=== PATIENT | female | born 1995 | race African-American/Black ===

== ENCOUNTER → 2016-08-23 | Outpatient (CLI) | payer OTHER ==
[~2016-08-23] MED LIST: AMOX875T PO; BCPILLS PO; CETICHW4 PO; DIPH1TAB PO; EPP3/2 IM; FLUC200T4 PO; IBUP-1277 PO; NORG1TAB23 PO; ONDA4TAB10 SL; VNTHFA/IN INH; [UNRECOGNIZED DRUG - REMARK]; [UNRECOGNIZED DRUG - REMARK] PO
--- NOTE | 2016-08-23 13:10 | DIAGNOSTIC IMAGING REPORT ---
MRI OF THE BRAIN WITHOUT CONTRAST CLINICAL HISTORY: HEADACHE COMPARISON STUDY: Head CT dated 05/03/2015 FINDINGS: Sagittal T1, axial diffusion, proton density and T2 weighted axial, coronal FLAIR, and axial T1-weighted images were acquired. No intra or extra-axial mass lesions are visualized Axial diffusion-weighted images reveal no evidence of acute or subacute infarction. There is no evidence of ventricular dilatation. Proton density T2-weighted and FLAIR images reveal no significant intraparenchymal signal abnormalities. There are no abnormal flow voids. IMPRESSION: Normal study. Electronically signed by: Galen Jacobo M.D. 08/23/2016 1:09 PM Dictated Date/Time: 08/23/2016 1:06 PM
== END | disposition home or self-care (01) ==
LOC: C.MRI 10:44
PROVIDERS: ATTEND Internal Medicine
DX: G43.009 Migraine without aura, not intractable, without status migrainosus (principal)

== ENCOUNTER 2016-09-10 21:57 | Emergency (ER) | payer OTHER ==
[~2016-09-10] VITALS: Ht 172.7 cm; Wt 90.5 kg
[~2016-09-10 21:57] MED LIST changes: -AMOX875T PO; -BCPILLS PO; -DIPH1TAB PO; -FLUC200T4 PO; -IBUP-1277 PO; -NORG1TAB23 PO; -ONDA4TAB10 SL; -VNTHFA/IN INH; -[UNRECOGNIZED DRUG - REMARK]; -[UNRECOGNIZED DRUG - REMARK] PO
[2016-09-10 22:02] VITALS: TEMP 36.9; Ht 172.7 cm; Wt 90.5 kg
[2016-09-10] MEDS ORDERED: [UNRECOGNIZED DRUG - REMARK] (22:38)
[2016-09-10] MEDS ORDERED: AMOXICILLIN/CLAVULANATE TAB 875 MG TAB PO ONE (22:45)
[2016-09-11] MEDS ORDERED: AMOX875T PO (01:50)
[2016-09-11] MEDS ORDERED: AMOXICIL/CLAVU 875MG HOME PACK PO ONE (02:00)
[2016-09-11 02:05] VITALS: BP 114/64; PULSE 74; O2SAT 98
--- NOTE | 2016-09-11 02:41 | EMERGENCY ROOM VISIT NOTE ---
History First contact with patient: 22:21 Chief Complaint: OTHER COMPLAINT Stated Complaint: BREAST INFLAMMATION - DISCHARGE - SCABS - PAIN History of Present Illness The patient is a 20 year old female who presents to the Emergency Room with complaints of nipple drainage and discharge for the past 3-4 days. The patient has not had fever or chills. She does have some discomfort of the right breast. She has not had redness or irritation of the breast, but feels that it is swollen. She has the piercing in the right nipple that she has not removed. She has not had symptoms like this in the past. She rates her discomfort a 6/ 10 that worsens with palpation in the area. She is not a diabetic. She is not or lactating. Review of Systems More than 10 systems were reviewed and otherwise negative with the exception of history of present illness. Past Medical/Surgical History Medical Problems: (1) Asthma (2) Renal atrophy, left Family History FH: brain tumor FH: migraine headache Social History Smoking Status: Never Smoker Marital Status: single Housing Status: lives with roommate Occupation Status: [employer] student Current/Historical Medications Scheduled Amoxicillin & Pot Clavulanate (Augmentin 875-125 mg), 1 TAB PO BID Control Pills ( Control Pills), 1 TAB PO DAILY Epinephrine (Epipen), 0.3 MG IM UD Scheduled PRN Diphenhydramine Hcl (Benadryl Allergy), 25 MG PO HS PRN for PRN Ibuprofen (Advil), 200 MG PO Q4 PRN for Pain Miscellaneous Medications [Scalp Pill], Unknown Dose Allergies Coded Allergies: Basil (Unverified Allergy, Unknown, HIVES FROM FRESH BASIL, 09/10/16) Shellfish (Unverified Allergy, Unknown, VOMITING, 09/10/16) Uncoded Allergies: FRESH FRUIT (Allergy, Unknown, HIVES, 09/10/16) Physical Exam Vital Signs Date Time Temp Pulse Resp B/P Pulse Ox O2 Delivery O2 Flow Rate FiO2 09/11/16 02:05 74 18 114/64 98 09/11/16 00:28 61 18 98/43 97 Room Air 09/10/16 22:02 36.9 73 18 127/83 97 Room Air Pain Rating (0-10): 0 Physical Exam VITALS: Vitals are noted on the nurse's note and reviewed by myself. Vital signs stable. GENERAL: Well-developed, well-nourished, black female, who is in no acute distress and resting comfortably. Patient is cooperative with the examination. HEAD: Normocephalic atraumatic. HEART: Regular rate and rhythm without murmurs gallops or rubs. LUNGS: Clear to auscultation bilaterally without wheezes, rales or rhonchi. No retractions or accessory muscle use. SKIN: Examination was performed with presence of female nursing garden center manager. The right nipple is with a piercing with associated erythema and mild edema. There is mild tenderness over the nipple but no obvious abscess or edema of the breast itself. No lymphadenopathy appreciated into the axilla. Medical Decision & Procedures ER Provider Diagnostic Interpretation: Preliminary Findings Only See Final Report For Complete Findings US OTHER - RIGHT BREAST: Dilated retroareolar ducts noted with small approximating cysts versus septated cyst medial to the nipple measuring up to 13 mm. No hyperemia/abscess formation. Medications Administered Medications (Trade) Dose Ordered Sig/Nika Route Start Time Stop Time Status Last Admin Dose Admin Amoxicillin/ Clavulanate Potassium (Augmentin Tab) 875 mg NOW ONCE PO 09/10/16 22:45 09/10/16 22:46 DC 09/10/16 22:42 875 MG Amoxicillin/ Clavulanate Potassium (Augmentin 875MG Home Pack) 1 homepack UD ONCE PO 09/11/16 02:00 09/11/16 02:01 DC 09/11/16 01:58 1 HOMEPACK ED Course Physical exam and history were performed. Nursing notes and EMR were reviewed. Patient appears to have an infected right nipple piercing. She is complaining of some right breast pain, although no palpable abscess was appreciated. The patient was started on Augmentin here in the department and ultrasound was performed. The ultrasound does not show obvious abscess, and at this time I feel her symptoms are likely limited to an infected nipple piercing. I recommended she remove the piercing, but the patient was very hesitant to this. She will be given a continuation course of Augmentin and asked to follow with her primary care physician. She was certainly invited back to the ER with any new, worsening, or concerning symptoms. She voiced understanding and rated her discomfort a 0/10 at the time of departure. The chart was completed utilizing [employer] Speech Voice Recognition Software. Grammatical errors, random word insertions, pronoun errors, and incomplete sentences are an occasional consequence of this system due to software limitations, ambient noise, and hardware issues. Any formal questions or concerns about the content, text, or information contained within the body of this dictation should be directly addressed to the provider for clarification. . Medical Decision Differential diagnosis: Etiologies such as cellulitis, abscess, MRSA infection, DVT, necrotizing fasciitis, dermatitis, drug eruption, as well as others were entertained.. Impression Primary Impression: Pierced nipple infection Departure Information Dispostion Home / Self-Care Condition GOOD Prescriptions Amoxicillin & Pot Clavulanate (Augmentin 875-125 mg) 1 Tab Tab 1 TAB PO BID for 9 Days, #18 TAB Prov: Vikram Posey PA-C 09/11/16 Forms HOME CARE DOCUMENTATION FORM, IMPORTANT VISIT INFORMATION Patient Instructions My [facility] Additional Instructions You were seen and evaluated today on an emergency basis only. This is not a substitute for, or an effort to provide, complete comprehensive medical care. It is not possible to recognize and treat all injuries or illnesses in a single emergency department visit. For this reason it is recommended that you followup with your primary care physician in the next 2-3 days for recheck of your condition. Remove your nipple piercing. Amoxicillin Clavulanate (Augmentin) 875mg: Take one pill twice daily for 10 total days for your infection. All antibiotics can cause diarrhea. If this occurs and you feel worse or it does not resolve in 1-2 days follow up with your doctor or return to the Emergency Department as this could be signs of serious underlying problems. Any medication can cause an allergic reaction, stop the pills immediately and return to the ER for rash, hives, breathing difficulties, or swelling. You are welcome to return to the emergency department anytime with new, worsening, or concerning symptoms.
--- NOTE | 2016-09-11 06:44 | DIAGNOSTIC IMAGING REPORT ---
Study: Breast ultrasound right HISTORY: Pain. Edema. FINDINGS: Somewhat distended subareolar ducts. Several small cysts in the subareolar region measuring up to 1.2 cm. IMPRESSION: Several subareolar distended ducts, combined with several small cysts. No evidence for abscess or collection. Electronically signed by: Mango Pelayo M.D. 09/11/2016 6:43 AM Dictated Date/Time: 09/11/2016 6:41 AM
[2017-01-02] MEDS ORDERED: VNTHFA/IN INH (12:52)
== END 2016-09-11 02:07 | disposition home or self-care (01) ==
LOC: C.EDB 21:59
DX: L08.89 Other specified local infections of the skin and subcutaneous tissue (principal); J45.909 Unspecified asthma, uncomplicated

== ENCOUNTER 2016-12-20 19:28 | Emergency (ER) | payer OTHER ==
[~2016-12-20] VITALS: Ht 172.7 cm; Wt 91.1 kg
[~2016-12-20 19:28] MED LIST changes: -CETICHW4 PO
[2016-12-20 19:36] VITALS: TEMP 37.3; Ht 172.7 cm; Wt 91.1 kg
[2016-12-20] MEDS ORDERED: SODIUM CHLORIDE 0.9% 1000ML 1,000 ML IV STA (19:48)
[2016-12-20] MEDS ORDERED: ACETAMINOPHEN 500 MG TAB PO STA (19:48)
[2016-12-20 20:19] LABS: HEMATOCRIT 35.1 % (37-47); MEAN CELL VOLUME 84.8 fL (80-100); MEAN CORPUSCULAR HEMOGLOBIN 27.8 pg (25-34); MEAN CORPUSCULAR HGB CONC 32.8 g/dl (32-36); MEAN PLATELET VOLUME 8.4 fL (7.4-10.4); PLATELET COUNT 256 K/uL (130-400); RED BLOOD COUNT 4.14 M/uL (4.2-5.4)
[2016-12-20 20:29] LABS: URINE APPEARANCE CLEAR (CLEAR); URINE BILIRUBIN NEG (NEG); URINE COLOR YELLOW; URINE EPITHELIAL CELL AUTO >30 /lpf (0-5); URINE NITRITE NEG (NEG); URINE PH 6.5 (4.5-7.5); UROBILINOGEN NEG (NEG); ZZUR CULT IF INDIC CLEAN CATCH NO
[2016-12-20 20:30] LABS: MANUAL MICROSCOPIC REQUIRED? NO; REVIEW REQ? NO
[2016-12-20 20:37] LABS: ALT/SGPT 21 U/L (12-78); BLOOD UREA NITROGEN 10 mg/dl (7-18); BUN/CREATININE RATIO 11.6 (10-20); CALCIUM 9.1 mg/dl (8.5-10.1); CARBON DIOXIDE 25 mmol/L (21-32); CHLORIDE 108 mmol/L (98-107); CREATININE 0.89 mg/dl (0.60-1.20); GLUCOSE 86 mg/dl (70-99); POTASSIUM 3.7 mmol/L (3.5-5.1); SODIUM 139 mmol/L (136-145)
[2016-12-20 20:40] LABS: ALKALINE PHOSPHATASE 40 U/L (45-117); AST/SGOT 21 U/L (15-37)
[2016-12-20 20:48] LABS: BASO % 0.1 %; BASO ABS # 0.01 K/uL (0-0.2); COMPLETE YES; EOS % 3.5 %; IG% 0.1 %; LYMPH % 56.6 %; LYMPH ABS # 4.19 K/uL (1.2-3.4); MONO % 6.8 %; NEUT % 32.9 %
--- NOTE | 2016-12-20 21:09 | DIAGNOSTIC IMAGING REPORT ---
CT SCAN OF THE ABDOMEN AND PELVIS WITHOUT IV CONTRAST CLINICAL HISTORY: Right lower quadrant abdominal pain. Right flank pain. COMPARISON STUDY: No priors. TECHNIQUE: CT scan of the abdomen and pelvis is performed from the lung bases to the proximal femora. Images are reviewed in the axial, sagittal, and coronal planes. IV contrast was not administered for this examination. Automated dose control exposure was utilized. CT DOSE: 500.77 mGy.cm FINDINGS: Lung bases: The heart is normal in size and without pericardial effusion. The lung bases are clear. Liver: The unenhanced liver is normal in size, contour, and attenuation. There is no intrahepatic biliary ductal dilatation. Gallbladder: Contracted. Spleen: Normal in size and attenuation. Pancreas: Unremarkable. Adrenal glands: Unremarkable. Kidneys: A left kidney is not identified. The unenhanced right kidney appears enlarged and is without hydronephrosis. There are no renal calculi identified. There is no evidence of contour deforming renal mass lesion. Abdominal vasculature: The abdominal aorta is normal in course and caliber. Bowel: The small bowel and colon are normal in course and caliber. The appendix is well-visualized and normal. Peritoneum: There is no intraperitoneal free air or abdominal ascites. There is a small fat-containing umbilical hernia. A naval piercing is noted. Lymphadenopathy: None. Pelvic viscera: The bladder, uterus, and adnexa are normal as visualized. Skeletal structures: No lytic or blastic lesions are seen. IMPRESSION: 1. There are no acute infectious or inflammatory findings in the abdomen or pelvis. 2. The left kidney is not identified and this may be on a congenital basis. Correlation the patient's medical/surgical history will be required. 3. There is compensatory hypertrophy of the right kidney. No renal calculi are identified. 4. Additional findings as above. Electronically signed by: Fermin Schmitz M.D. 12/20/2016 9:08 PM Dictated Date/Time: 12/20/2016 9:01 PM
--- NOTE | 2016-12-20 22:27 | DIAGNOSTIC IMAGING REPORT ---
ULTRASOUND OF THE PELVIS CLINICAL HISTORY: Right pelvic pain. COMPARISON STUDY: Pelvic CT dated 12/20/2016. TECHNIQUE: Real-time, grayscale, and color flow sonography of the pelvis is performed both transabdominally and endovaginally. Images are reviewed in the transverse and longitudinal planes. FINDINGS: Uterus: The uterus is normal in size and echotexture, measuring 7.3 x 3.4 x 4.2 cm. Small fibroids are suggested measure up to 1.2 cm. Endometrium: The endometrium is normal in appearance, and the endometrial stripe is normal in thickness measuring up to 0.8 cm. Ovaries: The ovaries are normal in size and morphology. The right ovary measures 3.5 x 2.9 x 2.5 cm and the left ovary measures 4.2 x 3.0 x 2.7 cm. There are numerous bilateral ovarian follicles. Normal Doppler waveforms are shown within both ovaries. Pelvis: There is no free fluid in the cul-de-sac. There are 2 cystic foci in the right adnexa adjacent the right ovary measuring 4.4 cm and 1.4 cm. IMPRESSION: 1. No acute sonographic abnormality is identified. 2. There are 2 cystic foci in the right adnexa measuring 4.4 cm and 1.4 cm. These may represent ovarian or paraovarian cysts. Consider precautionary 3-4 months follow-up ultrasound for reassessment. 3. There is no sonographic evidence of ovarian torsion at the time of examination. 4. Suspect tiny uterine fibroids. Electronically signed by: Fermin Schmitz M.D. 12/20/2016 10:26 PM Dictated Date/Time: 12/20/2016 10:21 PM
[2016-12-20 22:53] VITALS: BP 117/63; PULSE 57; O2SAT 99
--- NOTE | 2016-12-20 23:55 | EMERGENCY ROOM VISIT NOTE ---
History Report prepared by Slime: Leonidas Chi Under the Supervision of: Dr. Amando Wu D.O. First contact with patient: 19:38 Chief Complaint: OTHER COMPLAINT Stated Complaint: UNCOMFORTABLE NEAR KIDNEYS History of Present Illness The patient is a 21 year old female who presents to the Emergency Room with complaints of persistent right sided back pain that started early this morning. She states that the pain is around her right kidney, and she does not have a left kidney. The patient was born with a non-functioning left kidney. She describes the back pain as sharp and achy, and she says that she cannot lay on her right side. The patient has also been having wrap-around right-sided abdominal pain today. She says that twisting, turning, and bending makes the back pain worse. She states that last week she had pain and burning with urination, but it only lasted a day or so but went away completely. The patient had a UTI a couple years ago, and she says her current symptoms feel nothing like that. The patient adds that her hernia has been acting up recently. Her last bowel movement was this morning, but has been off lately. She has tried a laxative. The patient has no previous abdominal surgeries. She denies any recent trauma or falls. The patient notes that she gets intermittent heart racing when she gets anxious. The patient is on control, but she says her periods have been fluctuating and have not been consistent recently. Source of History: patient Onset: Early this morning Position: back (right) Quality: ache, sharp Timing: other (persistent) Modifying Factors (Worsening): other (twisting, turning, bending) Associated Symptoms: + abdominal pain (right) Note: Associated symptoms: Denies recent trauma or falls. Review of Systems See HPI for pertinent positives & negatives. A total of 10 systems reviewed and were otherwise negative. Past Medical & Surgical Medical Problems: (1) Asthma (2) Headache (3) Lip swelling (4) Pierced nipple infection (5) Renal atrophy, left Family History FH: brain tumor FH: migraine headache Social History Smoking Status: Current Every Day Smoker Marital Status: single Housing Status: lives with roommate Occupation Status: [employer] student Current/Historical Medications Scheduled Control Pills ( Control Pills), 1 TAB PO DAILY Scheduled PRN Albuterol Hfa (Ventolin Hfa), 2 PUFFS INH Q6H PRN for SOB/Wheezing Diphenhydramine Hcl (Benadryl Allergy), 25 MG PO UD PRN for Allergy Symptoms Epinephrine (Epipen), 0.3 MG IM UD PRN for ALLERGIC REACTION Ibuprofen (Advil), 200 MG PO UD PRN for Pain Allergies Coded Allergies: [place] (Unverified Allergy, Severe, HIVES, 10/23/16) Cat Dander (Unverified Allergy, Severe, HIVES, 10/23/16) Dog Dander (Unverified Allergy, Severe, HIVES, 10/23/16) Grass (Unverified Allergy, Severe, HIVES, 10/23/16) Guava Flavor (Unverified Allergy, Severe, THROAT SWELLING, 10/23/16) Basil (Unverified Allergy, Unknown, HIVES FROM FRESH BASIL, 10/23/16) Shellfish (Unverified Allergy, Unknown, VOMITING, 10/23/16) Uncoded Allergies: FRESH FRUIT (Allergy, Unknown, HIVES, 09/10/16) Physical Exam Vital Signs Date Time Temp Pulse Resp B/P (MAP) Pulse Ox O2 Delivery O2 Flow Rate FiO2 12/20/16 22:53 57 18 117/63 99 12/20/16 19:36 37.3 73 18 122/76 99 Room Air Physical Exam GENERAL: sitting up in bed, disheveled, no acute distress, nontoxic EYE EXAM: normal conjunctiva OROPHARYNX: no exudate, no erythema, lips, buccal mucosa, and tongue normal and mucous membranes are moist NECK: supple, no nuchal rigidity, no adenopathy, non-tender LUNGS: Clear to auscultation. Normal chest wall mechanics HEART: no murmurs, S1 normal and S2 normal ABDOMEN: abdomen soft, non-tender, normo-active bowel sounds, no masses, no rebound or guarding. BACK: Acute reproducible tenderness in lower lumbar paraspinal region tracking to right flank. SKIN: no rashes and no bruising UPPER EXTREMITIES: upper extremities are grossly normal. LOWER EXTREMITIES: No pitting edema. NEURO EXAM: Normal sensorium, cranial nerves II-XII grossly intact, normal speech, no gross weakness of arms, no gross weakness of legs. Medical Decision & Procedures ER Provider Diagnostic Interpretation: Radiology results as stated below per my review and the radiologist's interpretation: CT SCAN OF THE ABDOMEN AND PELVIS WITHOUT IV CONTRAST CLINICAL HISTORY: Right lower quadrant abdominal pain. Right flank pain. COMPARISON STUDY: No priors. TECHNIQUE: CT scan of the abdomen and pelvis is performed from the lung bases to the proximal femora. Images are reviewed in the axial, sagittal, and coronal planes. IV contrast was not administered for this examination. Automated dose control exposure was utilized. CT DOSE: 500.77 mGy.cm FINDINGS: Lung bases: The heart is normal in size and without pericardial effusion. The lung bases are clear. Liver: The unenhanced liver is normal in size, contour, and attenuation. There is no intrahepatic biliary ductal dilatation. Gallbladder: Contracted. Spleen: Normal in size and attenuation. Pancreas: Unremarkable. Adrenal glands: Unremarkable. Kidneys: A left kidney is not identified. The unenhanced right kidney appears enlarged and is without hydronephrosis. There are no renal calculi identified. There is no evidence of contour deforming renal mass lesion. Abdominal vasculature: The abdominal aorta is normal in course and caliber. Bowel: The small bowel and colon are normal in course and caliber. The appendix is well-visualized and normal. Peritoneum: There is no intraperitoneal free air or abdominal ascites. There is a small fat-containing umbilical hernia. A naval piercing is noted. Lymphadenopathy: None. Pelvic viscera: The bladder, uterus, and adnexa are normal as visualized. Skeletal structures: No lytic or blastic lesions are seen. IMPRESSION: 1. There are no acute infectious or inflammatory findings in the abdomen or pelvis. 2. The left kidney is not identified and this may be on a congenital basis. Correlation the patient's medical/surgical history will be required. 3. There is compensatory hypertrophy of the right kidney. No renal calculi are identified. 4. Additional findings as above. Electronically signed by: Fermin Schmitz M.D. 12/20/2016 9:08 PM Dictated Date/Time: 12/20/2016 9:01 PM ULTRASOUND OF THE PELVIS CLINICAL HISTORY: Right pelvic pain. COMPARISON STUDY: Pelvic CT dated 12/20/2016. TECHNIQUE: Real-time, grayscale, and color flow sonography of the pelvis is performed both transabdominally and endovaginally. Images are reviewed in the transverse and longitudinal planes. FINDINGS: Uterus: The uterus is normal in size and echotexture, measuring 7.3 x 3.4 x 4.2 cm. Small fibroids are suggested measure up to 1.2 cm. Endometrium: The endometrium is normal in appearance, and the endometrial stripe is normal in thickness measuring up to 0.8 cm. Ovaries: The ovaries are normal in size and morphology. The right ovary measures 3.5 x 2.9 x 2.5 cm and the left ovary measures 4.2 x 3.0 x 2.7 cm. There are numerous bilateral ovarian follicles. Normal Doppler waveforms are shown within both ovaries. Pelvis: There is no free fluid in the cul-de-sac. There are 2 cystic foci in the right adnexa adjacent the right ovary measuring 4.4 cm and 1.4 cm. IMPRESSION: 1. No acute sonographic abnormality is identified. 2. There are 2 cystic foci in the right adnexa measuring 4.4 cm and 1.4 cm. These may represent ovarian or paraovarian cysts. Consider precautionary 3-4 months follow-up ultrasound for reassessment. 3. There is no sonographic evidence of ovarian torsion at the time of examination. 4. Suspect tiny uterine fibroids. Electronically signed by: Fermin Schmitz M.D. 12/20/2016 10:26 PM Dictated Date/Time: 12/20/2016 10:21 PM ULTRASOUND OF THE PELVIS CLINICAL HISTORY: Right pelvic pain. COMPARISON STUDY: Pelvic CT dated 12/20/2016. TECHNIQUE: Real-time, grayscale, and color flow sonography of the pelvis is performed both transabdominally and endovaginally. Images are reviewed in the transverse and longitudinal planes. FINDINGS: Uterus: The uterus is normal in size and echotexture, measuring 7.3 x 3.4 x 4.2 cm. Small fibroids are suggested measure up to 1.2 cm. Endometrium: The endometrium is normal in appearance, and the endometrial stripe is normal in thickness measuring up to 0.8 cm. Ovaries: The ovaries are normal in size and morphology. The right ovary measures 3.5 x 2.9 x 2.5 cm and the left ovary measures 4.2 x 3.0 x 2.7 cm. There are numerous bilateral ovarian follicles. Normal Doppler waveforms are shown within both ovaries. Pelvis: There is no free fluid in the cul-de-sac. There are 2 cystic foci in the right adnexa adjacent the right ovary measuring 4.4 cm and 1.4 cm. IMPRESSION: 1. No acute sonographic abnormality is identified. 2. There are 2 cystic foci in the right adnexa measuring 4.4 cm and 1.4 cm. These may represent ovarian or paraovarian cysts. Consider precautionary 3-4 months follow-up ultrasound for reassessment. 3. There is no sonographic evidence of ovarian torsion at the time of examination. 4. Suspect tiny uterine fibroids. Electronically signed by: Fermin Schmitz M.D. 12/20/2016 10:26 PM Dictated Date/Time: 12/20/2016 10:21 PM Laboratory Results 12/20/16 20:05 Red Blood Count 4.14, Mean Corpuscular Volume 84.8, Mean Corpuscular Hemoglobin 27.8, Mean Corpuscular Hemoglobin Concent 32.8, Mean Platelet Volume 8.4, Neutrophils (%) (Auto) 32.9, Lymphocytes (%) (Auto) 56.6, Monocytes (%) (Auto) 6.8, Eosinophils (%) (Auto) 3.5, Basophils (%) (Auto) 0.1, Neutrophils # (Auto) 2.43, Lymphocytes # (Auto) 4.19, Monocytes # (Auto) 0.50, Eosinophils # (Auto) 0.26, Basophils # (Auto) 0.01 12/20/16 20:05 Test 12/20/16 20:00 12/20/16 20:05 Urine Color YELLOW Urine Appearance CLEAR (CLEAR) Urine pH 6.5 (4.5-7.5) Urine Specific [place] 1.010 (1.000-1.030) Urine Protein NEG (NEG) Urine Glucose (UA) NEG (NEG) Urine Ketones NEG (NEG) Urine Occult Blood NEG (NEG) Urine Nitrite NEG (NEG) Urine Bilirubin NEG (NEG) Urine Urobilinogen NEG (NEG) Urine Leukocyte Esterase NEG (NEG) Urine WBC (Auto) 1-5 /hpf (0-5) Urine RBC (Auto) 0-4 /hpf (0-4) Urine Hyaline Casts (Auto) 0 /lpf (0-5) Urine Epithelial Cells (Auto) >30 /lpf (0-5) Urine Bacteria (Auto) NEG (NEG) Urine Test NEG (NEG) White Blood Count 7.40 K/uL (4.8-10.8) Red Blood Count 4.14 M/uL (4.2-5.4) Hemoglobin 11.5 g/dL (12.0-16.0) Hematocrit 35.1 % (37-47) Mean Corpuscular Volume 84.8 fL (80-100) Mean Corpuscular Hemoglobin 27.8 pg (25-34) Mean Corpuscular Hemoglobin Concent 32.8 g/dl (32-36) Platelet Count 256 K/uL (130-400) Mean Platelet Volume 8.4 fL (7.4-10.4) Neutrophils (%) (Auto) 32.9 % Lymphocytes (%) (Auto) 56.6 % Monocytes (%) (Auto) 6.8 % Eosinophils (%) (Auto) 3.5 % Basophils (%) (Auto) 0.1 % Neutrophils # (Auto) 2.43 K/uL (1.4-6.5) Lymphocytes # (Auto) 4.19 K/uL (1.2-3.4) Monocytes # (Auto) 0.50 K/uL (0.11-0.59) Eosinophils # (Auto) 0.26 K/uL (0-0.5) Basophils # (Auto) 0.01 K/uL (0-0.2) RDW Standard Deviation 37.9 fL (36.4-46.3) RDW Coefficient of Variation 12.3 % (11.5-14.5) Immature Granulocyte % (Auto) 0.1 % Immature Granulocyte # (Auto) 0.01 K/uL (0.00-0.02) Anion Gap 6.0 mmol/L (3-11) Est Creatinine Clear Calc Drug Dose 118.0 ml/min Estimated GFR () 107.4 Estimated GFR (Non- 92.6 BUN/Creatinine Ratio 11.6 (10-20) Calcium Level 9.1 mg/dl (8.5-10.1) Total Bilirubin 0.2 mg/dl (0.2-1) Direct Bilirubin < 0.1 mg/dl (0-0.2) Aspartate Amino Transf (AST/SGOT) 21 U/L (15-37) Alanine Aminotransferase (ALT/SGPT) 21 U/L (12-78) Alkaline Phosphatase 40 U/L (45-117) Total Protein 7.5 gm/dl (6.4-8.2) Albumin 3.6 gm/dl (3.4-5.0) Lipase 200 U/L (73-393) Laboratory results per my review. Medications Administered Medications (Trade) Dose Ordered Sig/Nika Route Start Time Stop Time Status Last Admin Dose Admin Sodium Chloride 1,000 ml @ 999 mls/hr Q1H1M STAT IV 12/20/16 19:48 12/20/16 20:48 DC 12/20/16 20:28 999 MLS/HR Acetaminophen (Tylenol Tab) 1,000 mg NOW STAT PO 12/20/16 19:48 12/20/16 19:49 DC 12/20/16 20:28 1,000 MG ED Course ED COURSE: Vital signs were reviewed and showed hypertensive vitals. The patients medical record was reviewed The above diagnostic studies were performed and reviewed. ED treatments and interventions as stated above. 193: The patient was evaluated in room B9. A complete history and physical examination was performed. 1947: Ordered Tylenol Tab 1000 mg PO, NSS 1000 ml @ 999 mls/hr IV. 1045: Upon reevaluation, the patient is resting comfortably.I discussed my findings with the patient and she understands and agrees with the treatment plan. Based on the patients age, coexisting illnesses, exam and lab findings the decision to treat as an outpatient was made. The patient remained stable while under my care. The patient appeared well at the time of discharge. Medical Decision Differential diagnoses includes but is not limited to gastritis, peptic ulcer disease, GERD, gallbladder disease, pancreatitis, small bowel obstruction, acute coronary syndrome, pericarditis, ischemic bowel, irritable bowel disease, irritable bowel syndrome, appendicitis, diverticulitis, malignancy, hernia, urinary tract infection, torsion, /ectopic , perforation, trauma, infectious. Blood Pressure Screening: The patient was found to have a slightly elevated blood pressure due to circumstances. I do not believe that the patient requires hypertension monitoring. Medication Reconciliation: I attest that I have personally reviewed the patient' s current medication list. Patient is a 21-year-old female who presents the ER for right lower back pain tracking around her flank. History of 1 kidney. Abdominal exam shows clear reproducible pain. Labs including CBC, BMP, LFTs, bilirubin and lipase were unremarkable. UA negative. negative. CT was performed and was unremarkable. Ultrasound shows a right ovarian cyst versus pelvic mass consequently patient was instructed to follow up with PCP for repeat ultrasound in one month. I do favor symptoms are consistent with right ovarian cyst. She was discharged to take Motrin Tylenol. Discussed with Pt concerning signs and symptoms to watch out for. Pt was instructed to follow up with their PCP and discussed with the patient their option to return to the ED at anytime for persistent or worsening symptoms. The appropriate anticipatory guidance and out- patient management, including indications for return to the emergency department , were explained at length to the patient and understood. Impression Primary Impression: Ovarian cyst Additional Impression: Abdominal pain Scribe Attestation The scribe's documentation has been prepared under my direction and personally reviewed by me in its entirety. I confirm that the note above accurately reflects all work, treatment, procedures, and medical decision making performed by me. Departure Information Dispostion Home / Self-Care Referrals No Doctor, Assigned (PCP) Patient Instructions Cyst Ovarian Tx, My [facility] Additional Instructions Please follow up with your primary care doctor or if you are a student [facility] with in the next 24 hours. Any worsening of your symptoms, please return to the ED immediately. This includes worsening pain, persistent nausea vomiting, fevers greater than 100.4, or any other concerning signs or symptoms from your standpoint. You must have a repeat ultrasound sound of your pelvis for a possible right ovarian cyst at one months time. This is early January. Problem Qualifiers Additional Impression: Abdominal pain Abdominal location: unspecified location Qualified Codes: R10.9 - Unspecified abdominal pain
[2017-01-02] MEDS ORDERED: VNTHFA/IN INH (12:52)
== END 2016-12-20 22:54 | disposition home or self-care (01) ==
LOC: C.EDB 19:29
DX: N83.209 Unspecified ovarian cyst, unspecified side (principal); R10.9 Unspecified abdominal pain; J45.909 Unspecified asthma, uncomplicated; F17.200 Nicotine dependence, unspecified, uncomplicated

== ENCOUNTER 2016-12-31 01:23 | Emergency (ER) | payer OTHER ==
[~2016-12-31] VITALS: Ht 172.7 cm; Wt 94.5 kg
[2016-12-31 01:29] VITALS: TEMP 36.8; Ht 172.7 cm; Wt 94.5 kg
[2016-12-31] MEDS ORDERED: LORAZEPAM 2 MG/ML 1 ML VIAL IM STA (01:36)
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
[2016-12-31 04:30] VITALS: BP 120/77; PULSE 69; O2SAT 99
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
[2017-01-02] MEDS ORDERED: VNTHFA/IN INH (12:52)
== END 2016-12-31 04:30 | disposition home or self-care (01) ==
LOC: C.EDB 01:25
DX: R51 Headache (principal); M54.2 Cervicalgia; V43.62XA Car passenger injured in collision with other type car in traffic accident, initial encounter; Y92.488 Other paved roadways as the place of occurrence of the external cause; J45.909 Unspecified asthma, uncomplicated; Z79.3 Long term (current) use of hormonal contraceptives

== ENCOUNTER 2017-01-02 15:54 | Emergency (ER) | payer OTHER ==
[~2017-01-02] VITALS: Ht 172.7 cm; Wt 92.8 kg
[~2017-01-02 15:54] MED LIST changes: -EPP3/2 IM; +VNTHFA/IN INH
[2017-01-02 15:59] VITALS: TEMP 36.9; Ht 172.7 cm; Wt 92.8 kg
[2017-01-02] MEDS ORDERED: [UNRECOGNIZED DRUG - REMARK] PO (16:10)
[2017-01-02] MEDS ORDERED: ONDA4TAB10 SL (16:32)
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
[2017-01-02 16:56] VITALS: BP 124/75; PULSE 86; O2SAT 100
[2017-01-02] MEDS ORDERED: IBUP-1277 PO (19:25)
[2017-01-02] MEDS ORDERED: EPP3/2 IM (20:14)
[2017-01-02] MEDS ORDERED: BCPILLS PO (21:26)
[2017-01-02] MEDS ORDERED: DIPH1TAB PO (22:38)
== END 2017-01-02 16:57 | disposition home or self-care (01) ==
LOC: C.EDB 15:57 → C.EDD 16:57
DX: S06.0X0A Concussion without loss of consciousness, initial encounter (principal); V89.2XXA Person injured in unspecified motor-vehicle accident, traffic, initial encounter; J45.909 Unspecified asthma, uncomplicated; Z79.899 Other long term (current) drug therapy; Z91.018 Allergy to other foods; Z91.09 Other allergy status, other than to drugs and biological substances; Z80.8 Family history of malignant neoplasm of other organs or systems

== ENCOUNTER 2017-01-11 10:56 | Emergency (ER) | payer OTHER ==
[~2017-01-11] VITALS: Ht 172.7 cm; Wt 93.2 kg
[~2017-01-11 10:56] MED LIST changes: +BCPILLS PO; +DIPH1TAB PO; +EPP3/2 IM; +IBUP-1277 PO; +ONDA4TAB10 SL; +[UNRECOGNIZED DRUG - REMARK] PO
[2017-01-11 11:06] VITALS: TEMP 37.1; Ht 172.7 cm; Wt 93.2 kg
[2017-01-11] MEDS ORDERED: FENTANYL CITRATE INJ 50 MCG/1 ML 2 ML VIAL IV STA (11:22)
[2017-01-11] MEDS ORDERED: ONDANSETRON INJ 2 MG/ML 2 ML VIAL IV STA (11:22)
[2017-01-11 12:35] LABS: PREG INTERNAL NEGATIVE QC NEG CLEAR BACKGROUND; PREG INTERNAL POSITIVE QC POS CONTROL LINE
--- NOTE | 2017-01-11 13:31 | DIAGNOSTIC IMAGING REPORT ---
CT OF THE HEAD WITHOUT CONTRAST CLINICAL HISTORY: Continued and worsening head injury symptoms. COMPARISON STUDY: Head CT December 31, 2016. CT DOSE: 601.98 mGy.cm TECHNIQUE: Helical axial images of the head were obtained without IV contrast. Automated exposure control was utilized for the study. A dose lowering technique was utilized adhering to the principles of ALARA. FINDINGS: No acute intracranial hemorrhage, midline shift or mass effect is present. Ventricular system is normal. Basilar cisterns are patent. There are no extra-axial collections. Bradford-white differentiation is maintained. There are no findings to suggest acute dural sinus thrombosis or acute territorial infarct. There are no calvarial fractures. Visualized portions of the sinuses and the mastoid air cells are clear. IMPRESSION: 1. No acute intracranial findings. 2. No calvarial fracture. Electronically signed by: Romulo Landers M.D. 01/11/2017 1:30 PM Dictated Date/Time: 01/11/2017 1:27 PM
[2017-01-11 13:55] VITALS: BP 118/69; PULSE 67; O2SAT 98
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
== END 2017-01-11 13:50 | disposition home or self-care (01) ==
LOC: C.EDB 10:57 → C.EDD 13:50
DX: F07.81 Postconcussional syndrome (principal); V49.40XA Driver injured in collision with unspecified motor vehicles in traffic accident, initial encounter

== ENCOUNTER 2017-02-03 17:27 | Emergency (ER) | payer OTHER ==
[~2017-02-03] VITALS: Ht 172.7 cm; Wt 92.4 kg
[~2017-02-03 17:27] MED LIST changes: -ONDA4TAB10 SL
[2017-02-03 17:30] VITALS: TEMP 36.7; Ht 172.7 cm; Wt 92.4 kg
[2017-02-03] MEDS ORDERED: SODIUM CHLORIDE 0.9% 1000ML 1,000 ML IV STA (17:48)
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
[2017-02-03 18:25] LABS: BASO % 0.1 %; BASO ABS # 0.01 K/uL (0-0.2); COMPLETE YES; EOS % 5.3 %; HEMATOCRIT 35.2 % (37-47); IG% 0.1 %; LYMPH % 46.5 %; LYMPH ABS # 3.48 K/uL (1.2-3.4); MEAN CORPUSCULAR HEMOGLOBIN 29.7 pg (25-34); MEAN CORPUSCULAR HGB CONC 34.9 g/dl (32-36); MEAN PLATELET VOLUME 8.8 fL (7.4-10.4); MONO % 7.4 %; NEUT % 40.6 %; PLATELET COUNT 272 K/uL (130-400); RED BLOOD COUNT 4.14 M/uL (4.2-5.4); WHITE BLOOD COUNT 7.48 K/uL (4.8-10.8)
[2017-02-03 18:43] LABS: PREG INTERNAL NEGATIVE QC NEG CLEAR BACKGROUND; PREG INTERNAL POSITIVE QC POS CONTROL LINE
[2017-02-03 18:48] LABS: BUN/CREATININE RATIO 9.2 (10-20); CALCIUM 8.9 mg/dl (8.5-10.1); CREATININE 0.92 mg/dl (0.60-1.20); POTASSIUM 3.7 mmol/L (3.5-5.1)
[2017-02-03] MEDS ORDERED: NORG1TAB23 PO (18:54)
[2017-02-03 18:59] LABS: ALB/GLOB RATIO 0.8 (0.9-2); THYROID STIMULATING HORMONE 0.564 uIu/ml (0.300-4.500)
[2017-02-03] MEDS ORDERED: FLUC200T4 PO (19:03)
[2017-02-03 19:07] VITALS: BP 123/75; PULSE 62; O2SAT 100
[2017-02-03 19:09] LABS: URINE APPEARANCE CLEAR (CLEAR); URINE BILIRUBIN NEG (NEG); URINE COLOR YELLOW; URINE EPITHELIAL CELL AUTO >30 /lpf (0-5); URINE NITRITE NEG (NEG); UROBILINOGEN NEG (NEG); ZZUR CULT IF INDIC CLEAN CATCH NO
[2017-02-03 19:13] LABS: MANUAL MICROSCOPIC REQUIRED? NO; REVIEW REQ? NO
== END 2017-02-03 19:37 | disposition home or self-care (01) ==
LOC: C.EDB 17:30
DX: R42 Dizziness and giddiness (principal); F07.81 Postconcussional syndrome; J45.909 Unspecified asthma, uncomplicated; Z91.018 Allergy to other foods; Z91.09 Other allergy status, other than to drugs and biological substances; Z85.9 Personal history of malignant neoplasm, unspecified

== ENCOUNTER → 2017-02-19 | Outpatient (CLI) | payer OTHER ==
[~2017-02-19] MED LIST changes: -BCPILLS PO; +FLUC200T4 PO; +GADAVIST IV PRN; +NORG1TAB23 PO; -[UNRECOGNIZED DRUG - REMARK] PO
--- NOTE | 2017-02-19 17:23 | DIAGNOSTIC IMAGING REPORT ---
BRAIN COMBO CLINICAL HISTORY: 21 years-old Female presenting with CONCUSSION,DIZZINESS,CHA. TECHNIQUE: Multisequence, multiplanar MR imaging of the brain was performed before and after the administration of intravenous contrast. IV contrast: 90 image of Gadavist. COMPARISON: 08/23/[address] head from 01/11/2017. FINDINGS: Ventricles and sulci normal in size. Brain parenchyma normal in appearance with preserved hoyos-white differentiation. No mass effect or midline shift. No hemorrhage or acute territorial infarct. No extra-axial fluid collection. T2 skull base flow voids preserved. No abnormal parenchymal enhancement. Bone marrow signal intensity within the calvarium within normal limits. IMPRESSION: No acute intracranial abnormality. No abnormal enhancement. Electronically signed by: Chi Salazar M.D. 02/19/2017 5:22 PM Dictated Date/Time: 02/19/2017 5:19 PM
== END | disposition home or self-care (01) ==
LOC: C.MRI 15:20
PROVIDERS: ATTEND Psychiatry & Neurology Neurology
DX: R42 Dizziness and giddiness (principal); R51 Headache; S06.0X9A Concussion with loss of consciousness of unspecified duration, initial encounter; X58.XXXA Exposure to other specified factors, initial encounter

== ENCOUNTER 2018-01-28 21:29 | Emergency (ER) | payer OTHER ==
[~2018-01-28] VITALS: Ht 172.7 cm; Wt 86.3 kg
[~2018-01-28 21:29] MED LIST changes: -DIPH1TAB PO; -GADAVIST IV PRN
[2018-01-28 21:39] VITALS: Ht 172.7 cm; Wt 86.3 kg
[2018-01-28] MEDS ORDERED: LIDOCAINE 1% BUFFERED INJ 20 ML VIAL INFIL ONE (22:00)
[2018-01-28] MEDS ORDERED: BCPILLS PO (22:14)
--- NOTE | 2018-01-28 22:31 | EMERGENCY ROOM VISIT NOTE ---
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 History of Present Illness The patient is a 22 year old female who presents to the Emergency Room with complaints of a laceration to her left fifth finger. The patient was at work just prior to arrival and was cleaning a metal nelson when she sliced her finger. She reports 7/10 pain at the site of the laceration. She denies numbness or weakness. She is able to move the finger. Her tetanus is up-to-date. Review of Systems A complete 6 point review of systems was reviewed with the patient with pertinent positives and negatives as per history of present illness. All else were negative. Past Medical/Surgical History Medical Problems: (1) Asthma (2) Headache (3) Lip swelling (4) Pierced nipple infection (5) Renal atrophy, left Family History FH: brain tumor FH: migraine headache Social History Smoking Status: Never Smoker Alcohol Use: occasionally Marital Status: single Housing Status: lives with roommate Occupation Status: [employer] student Current/Historical Medications Scheduled Control Pills ( Control Pills), 1 TAB PO DAILY Scheduled PRN Albuterol Hfa (Ventolin Hfa), 2 PUFFS INH Q6H PRN for SOB/Wheezing Diphenhydramine Hcl (Benadryl Allergy), 25 MG PO UD PRN for Allergy Symptoms Epinephrine (Epipen), 0.3 MG IM UD PRN for ALLERGIC REACTION Physical Exam Vital Signs Date Time Temp Pulse Resp B/P (MAP) Pulse Ox O2 Delivery O2 Flow Rate FiO2 01/28/18 21:39 36.9 61 18 145/90 99 Room Air Physical Exam VITALS: Vitals are noted on the nurse's note and reviewed by myself. Vital signs stable. GENERAL: This is a 22-year-old female, in no acute distress, nondiaphoretic, well-developed well-nourished. SKIN: There is a 1 cm laceration to the palmar aspect of the left fifth finger, over the PIP. No tendons or bone seen in the base of the wound. No foreign body seen in the wound. Capillary refill within 2 seconds. MUSCULOSKELETAL: Full range of motion of the left fifth finger, strength 5/5. NEURO: Patient was alert and oriented to person place and time. Distal sensation intact. Medical Decision & Procedures Procedure Verbal consent was obtained to perform the procedure. Using sterile technique the wound was cleaned with Betadine. The area was sterilely draped. 1 ml of 1 % buffered lidocaine was used to anesthetize the laceration. Once the patient was anesthetized, the wound was copiously irrigated under pressure with sterile saline. The wound was explored and there were no deep structures injured such as tendons, bone, or significant blood vessels. The laceration was repaired using 3 simple interrupted 5-0 nylon sutures with the wound edges being well approximated. The patient tolerated the procedure well. Hemostasis was achieved. The area was cleaned with sterile saline and dressed with bacitracin ointment and bandage. Medical Decision The patient was evaluated as above. Laceration repair was performed as noted in the procedure section. She was placed in a metal finger splint. Suture care instructions were discussed with the patient. She verbalized understanding of my assessment and treatment plan and was discharged home in good condition. Medication Reconcilliation Current Medication List: was personally reviewed by me Blood Pressure Screening Patient's blood pressure: Elevated blood pressure Blood pressure disposition: Elevated BP felt to be situational Impression Primary Impression: Laceration of finger Departure Information Dispostion Home / Self-Care Condition GOOD Referrals Beth De Dios DO (PCP) Forms HOME CARE DOCUMENTATION FORM, IMPORTANT VISIT INFORMATION Patient Instructions My [facility] Additional Instructions You have received 3 sutures on your finger. These sutures are NOT dissolvable and WILL need to be removed by a health care provider in 12/14 days. You can return to the Emergency Department or contact your Primary Care Provider to have the sutures removed. Proper wound care is essential for adequate wound healing and infection prevention. You can shower and clean the wound with soap and water. Do not scour over the wound, pat dry with a towel. Do not submerse the wound (i.e. bathe or dish wash) until the sutures have been removed. You can use an antibiotic ointment with a dressing over the wound for the next 3-4 days. After this time you may leave the wound dry and open to the air. If crust develops over the wound you can use a Q-tip to apply a 1:1 peroxide:water solution to clean the wound. Look for signs of infection of the wound including: increased pain, swelling, foul discharge, streaking, or increased temperature. If any of these are noticed you should return to the Emergency Department for further assessment and treatment. As with any laceration you may have received nerve damage to the surrounding tissues. This damage may or may not be permanent. You should keep the area covered with sunscreen for the first 6 months to 1 year when at risk for exposure to help minimize scarring. You can also use scar reducing creams or Vitamin E oil to help minimize scarring. For pain control, you can use the following unuk-[id number] medicines (if >12 yo): - Regular strength (325mg/tab) Tylenol (acetaminophen) 2 tabs every 4-6 hours as needed. Do not exceed 12 tablets in a 24 hour period. Avoid taking more than 4 grams (4000 mg) of Tylenol per day. This includes any other sources of acetaminophen you may take on a regular basis. - Regular strength (200 mg/tab) Advil (ibuprofen) 1-2 tabs every 4-6 hours as needed. Do not exceed a dose of 3200 mg per day. Return to the emergency department if your symptoms worsen despite treatment course outlined above. Problem Qualifiers Primary Impression: Laceration of finger Encounter type: initial encounter Finger: little finger Damage to nail status: without damage Foreign body presence: without foreign body Laterality: left Qualified Codes: S61.217A - Laceration without foreign body of left little finger without damage to nail, initial encounter
[2018-01-28 22:38] VITALS: BP 145/90; PULSE 61; TEMP 36.9; O2SAT 99
[2018-01-28] MEDS ORDERED: DIPH1TAB87 PO (22:38)
== END 2018-01-28 22:38 | disposition home or self-care (01) ==
LOC: C.EDB 21:30 → C.EDD 22:38
DX: S61.217A Laceration without foreign body of left little finger without damage to nail, initial encounter (principal); W45.8XXA Other foreign body or object entering through skin, initial encounter; Y92.89 Other specified places as the place of occurrence of the external cause; Y99.0 Civilian activity done for income or pay; J45.909 Unspecified asthma, uncomplicated; Z79.3 Long term (current) use of hormonal contraceptives

== ENCOUNTER 2018-02-09 16:29 | Emergency (ER) | payer OTHER ==
[~2018-02-09] VITALS: Ht 172.7 cm; Wt 86.0 kg
[~2018-02-09 16:29] MED LIST changes: +BCPILLS PO; +DIPH1TAB87 PO; -FLUC200T4 PO; -IBUP-1277 PO; -NORG1TAB23 PO
[2018-02-09 16:34] VITALS: Ht 172.7 cm; Wt 86.0 kg
[2018-02-09 16:49] VITALS: BP 126/73; PULSE 57; TEMP 36.9; O2SAT 98
--- NOTE | 2018-02-09 17:13 | EMERGENCY ROOM VISIT NOTE ---
ED Visit Note First contact with patient: 16:36 CHIEF COMPLAINT: Suture removal This patient returns to the ED today for removal of sutures that were placed 12 days ago. There has been no swelling, redness, or drainage from the wound. The patient feels like the laceration is healing well. REVIEW OF SYSTEMS: Head: No headache, injury or neck pain. Skin: No rash, new lesions, or masses. General: No fever or chills, fatigue, loss of appetite , or significant recent weight gain or loss. PMH: Reviewed and unchanged from prior visit. SOCIAL HISTORY: Patient lives at home. PHYSICAL EXAM: Vital Signs: Reviewed Nurse's notes. There is a sutured wound on the palmar aspect of the left fifth finger over the PIP crease with no signs of infection. There is no erythema, swelling, or tenderness. EMERGENCY DEPARTMENT COURSE: The sutures were removed without any difficulty and there was no separation of the wound edges. The patient does appear to have a little bit of weakness in flexion of the DIP of the finger, this could be related to her being immobilized while the sutures were in place. There was no documentation of any concern regarding a flexor tendon injury. Patient was advised to resume range of motion as tolerated, if she continues to notice difficulty flexing the finger, she should follow-up with the S or orthopedics. Medication reconciliation: I attest that I have personally reviewed the patient' s current medication list. Blood pressure screening : Patient was found to have normal blood pressure on screening and does not require follow-up. Problem List Medical Problems: (1) Asthma Status: Chronic (2) Headache Status: Resolved (3) Lip swelling Status: Resolved (4) Pierced nipple infection Status: Resolved (5) Renal atrophy, left Status: Chronic Current/Historical Medications Scheduled Control Pills ( Control Pills), 1 TAB PO DAILY Scheduled PRN Albuterol Hfa (Ventolin Hfa), 2 PUFFS INH Q6H PRN for SOB/Wheezing Diphenhydramine Hcl (Benadryl Allergy), 25 MG PO UD PRN for Allergy Symptoms Epinephrine (Epipen), 0.3 MG IM UD PRN for ALLERGIC REACTION Allergies Coded Allergies: [place] (Unverified Allergy, Severe, HIVES, 12/31/16) Cat Dander (Unverified Allergy, Severe, HIVES, 12/31/16) Dog Dander (Unverified Allergy, Severe, HIVES, 12/31/16) Grass (Unverified Allergy, Severe, HIVES, 12/31/16) Guava Flavor (Unverified Allergy, Severe, THROAT SWELLING, 12/31/16) Basil (Unverified Allergy, Unknown, HIVES FROM FRESH BASIL, 12/31/16) Iodine (Unverified Allergy, Unknown, unknown, 01/11/17) NUTS (Verified Allergy, Unknown, gi upset, 01/11/17) Shellfish (Unverified Allergy, Unknown, VOMITING, 12/31/16) Uncoded Allergies: FRESH FRUIT (Allergy, Unknown, HIVES, 09/10/16) Vital Signs Date Time Temp Pulse Resp B/P (MAP) Pulse Ox O2 Delivery O2 Flow Rate FiO2 02/09/18 16:49 36.9 57 18 98 02/09/18 16:34 36.9 57 18 126/73 98 Room Air Departure Information Impression Primary Impression: Encounter for removal of sutures Referrals Beth De Dios DO (PCP) Forms HOME CARE DOCUMENTATION FORM, IMPORTANT VISIT INFORMATION Patient Instructions [facility]
== END 2018-02-09 16:49 | disposition home or self-care (01) ==
LOC: C.EDB 16:30 → C.EDD 16:49
DX: S61.217D Laceration without foreign body of left little finger without damage to nail, subsequent encounter (principal); X58.XXXD Exposure to other specified factors, subsequent encounter